=== PATIENT | female | born 1950 | race Caucasian/White ===

== ENCOUNTER → 2016-11-17 | Outpatient (CLI) | payer MEDICARE ==
[~2016-11-17] MED LIST: AMAN100C7 PO; CARB1TAB3 PO; CARB1TAB5 PO; ENTA200T PO; IBUP-1223 PO; PRAM0.5T5 PO
[2016-11-17 09:27] LABS: EPI LOT# 5695218
[2016-11-17 09:33] LABS: HEMATOCRIT 46.3 % (34.6-47.8); HEMOGLOBIN 15.8 g/dL (11.7-16.4); WHITE BLOOD COUNT 6.1 x10^3/uL (3.4-10)
[2016-11-17 09:45] LABS: BLOOD UREA NITROGEN 20 mg/dL (7-18)
[2016-11-17 09:48] LABS: ASPARTATE AMINO TRANSFERASE 18 U/L (15-37)
[2016-11-17 10:26] LABS: EPI CARTRIDGE 102 SECONDS (72-193); HCT (PFA) 46.3 % (34.6-47.8); PLATELET (PFA) 249 x10^3/uL (130-400)
== END | disposition home or self-care (01) ==
LOC: STAR 07:39
PROVIDERS: ATTEND Neurological Surgery
DX: Z01.811 Encounter for preprocedural respiratory examination (principal); M25.78 Osteophyte, vertebrae; G20 Parkinson's disease; R79.1 Abnormal coagulation profile; R82.99 Other abnormal findings in urine; Z98.82 Breast implant status
CPT/HCPCS: 36415; 71020; 80053; 81001; 85014; 85025; 85049; 85576; 85610; 85730; 87086; 93005

== ENCOUNTER 2016-11-21 10:53 | Day surgery (SDC) | payer MEDICARE ==
[~2016-11-21] VITALS: Ht 160 cm; Wt 90.4 kg
[2016-11-21 11:38] VITALS: BP 111/67
[2016-11-21] MEDS ORDERED: LACTATED RINGERS 1,000 ML IV SCH (11:42)
[2016-11-21] MEDS ORDERED: PROPOFOL 10 MG/ML, 20ML ONE (12:16)
[2016-11-21] MEDS ORDERED: GADOBUTROL 10 MMOL/10 ML PFS ONE (12:45)
[2016-11-21] MEDS ORDERED: FENTANYL PF 100 MCG/2ML IV PRN (13:00)
[2016-11-21] MEDS ORDERED: ONDANSETRON 2MG/ML, 2ML IVPush PRN (13:00)
== END 2016-11-21 14:50 ==
LOC: OUT 10:53 → EDSTATUS 12:45 → OUT 14:50
PROVIDERS: ATTEND Neurological Surgery
DX: G20 Parkinson's disease (principal); K21.9 Gastro-esophageal reflux disease without esophagitis
CPT/HCPCS: 70553; A9585; J2704; J7120

== ENCOUNTER 2016-11-27 05:37 | Inpatient (IN) | payer MEDICARE ==
[~2016-11-27] VITALS: Ht 160 cm; Wt 89.7 kg
[2016-11-27] MEDS ORDERED: CEFUROXIME 1.5 GM ONE (06:15)
[2016-11-27] MEDS ORDERED: MINERAL OIL 10 ML VIAL MC ONE (06:15)
[2016-11-27] MEDS ORDERED: NITROPRUSSIDE 25 MG/ML, 2ML ONE (06:15)
[2016-11-27] MEDS ORDERED: BUPIVACAINE/PF 0.5% ONE (06:15)
[2016-11-27] MEDS ORDERED: SODIUM BICARBONATE 1 MEQ/ML, 50ML VIAL ONE (06:16)
[2016-11-27] MEDS ORDERED: THROMBIN 5,000 UNIT VIAL TP ONE (06:16)
[2016-11-27] MEDS ORDERED: BACITRACIN 50,000 UNIT ONE (06:16)
[2016-11-27] MEDS ORDERED: LIDOCAINE/MPF 2%-EPI 1:200K, 20 ML ONE (06:16)
[2016-11-27] MEDS ORDERED: BACITRACIN OINT 500U/GM, 15 GM ONE (06:16)
[2016-11-27] MEDS ORDERED: LACTATED RINGERS 1,000 ML IV SCH (06:38)
[2016-11-27 06:43] VITALS: BP 133/72
[2016-11-27] MEDS ORDERED: PROPOFOL 10 MG/ML, 20ML ONE (07:20)
[2016-11-27] MEDS ORDERED: OXYcodone 5 MG/5 ML ORAL.SOL UDC PO PRN (10:00)
[2016-11-27] MEDS ORDERED: FENTANYL PF 100 MCG/2ML IV PRN (10:00)
[2016-11-27] MEDS ORDERED: ACETAMINOPHEN 325 MG TABLET PO PRN ×2 (10:00→14:30)
[2016-11-27] MEDS ORDERED: HYDROmorphone 1 MG/ML, 1ML IV PRN (10:00)
[2016-11-27] MEDS ORDERED: LABETALOL 5MG/ML, 20ML IV PRN (10:00)
[2016-11-27] MEDS ORDERED: ONDANSETRON 2MG/ML, 2ML IVPush PRN (10:00)
[2016-11-27] MEDS ORDERED: hydrALAzine 20 MG/ML, 1ML IV PRN (10:00)
[2016-11-27] MEDS ORDERED: HYDROcodone/APAP 5/325 TABLET PO PRN (14:30)
[2016-11-27] MEDS ORDERED: morphine SULFATE 10 MG/ML, 1ML IV PRN ×2 (14:30)
[2016-11-27] MEDS: DEXAMETHASONE 4 MG TABLET PO SCH ×2 (14:30→20:30)
[2016-11-27] MEDS ORDERED: LABETALOL 250 MG in DEXTROSE 5% 200 ML IV PRN (14:30)
[2016-11-27] MEDS ORDERED: ONDANSETRON 2MG/ML, 2ML IV PRN (14:30)
[2016-11-27] MEDS ORDERED: ACETAMINOPHEN 650 MG SUPP PR PRN (14:30)
[2016-11-27] MEDS: OXYcodone/APAP 5/325MG TABLET PO PRN ×2 (14:44→20:50)
[2016-11-27] MEDS: D5%-0.9% NACL+KCL 20MEQ 1,000 ML IV SCH (14:50)
[2016-11-27] MEDS: DEXAMETHASONE 4 MG/ML, 1ML IV SCH ×2 (15:15→20:50)
[2016-11-27] MEDS: CEFUROXIME 1.5 GM in SODIUM CHLORIDE 0.9% 50 ML IVPB SCH (17:15)
[2016-11-27] MEDS ORDERED: CARBIDOPA/LEVODOPA CR 50 MG/200 MG TABLET PO SCH (21:00)
[2016-11-27] MEDS ORDERED: PRAMIPEXOLE 0.5MG TABLET PO SCH (21:00)
[2016-11-27] MEDS ORDERED: ENTACAPONE 200 MG TABLET PO SCH (21:00)
[2016-11-27] MEDS ORDERED: CARBIDOPA/LEVODOPA 25 MG/250 MG TABLET PO SCH (21:00)
[2016-11-27] MEDS ORDERED: AMANTADINE 100 MG CAPSULE PO SCH (21:00)
[2016-11-28] MEDS: CEFUROXIME 1.5 GM in SODIUM CHLORIDE 0.9% 50 ML IVPB SCH (00:54)
[2016-11-28] MEDS: DEXAMETHASONE 4 MG TABLET PO SCH (02:30)
[2016-11-28] MEDS: DEXAMETHASONE 4 MG/ML, 1ML IV SCH ×2 (02:54→08:59)
[2016-11-28] MEDS: D5%-0.9% NACL+KCL 20MEQ 1,000 ML IV SCH (02:55)
[2016-11-28 03:21] LABS: BLOOD UREA NITROGEN 19 mg/dL (7-18)
[2016-11-28] MEDS ORDERED: CARBIDOPA/LEVODOPA 25 MG/250 MG TABLET PO SCH ×3 (06:00→12:00)
[2016-11-28] MEDS ORDERED: CARBIDOPA/LEVODOPA CR 50 MG/200 MG TABLET PO SCH (06:00)
[2016-11-28] MEDS ORDERED: OXYC-302 PO ×2 (08:10→12:11)
[2016-11-28] MEDS ORDERED: CEPH-368 PO (08:10)
[2016-11-28] MEDS ORDERED: ENTACAPONE 200 MG TABLET PO SCH ×2 (09:00→12:00)
== END 2016-11-28 12:40 | disposition home or self-care (01) | DRG 27 ==
LOC: ORIP 05:37 → EDSTATUS 07:30 → CCU 13:37 → DCLOUNGE 11-28 12:01
PROVIDERS: ADMIT Neurological Surgery; ATTEND Neurological Surgery
PROC: 4B00XVZ Measurement of Central Nervous Stimulator, External Approach (ICD-10-PCS; 2016-11-27)
PROC: 00H03MZ Insertion of Neurostimulator Lead into Brain, Percutaneous Approach (ICD-10-PCS; principal; 2016-11-27 07:30)
DX: G20 Parkinson's disease (principal); G25.0 Essential tremor
CPT/HCPCS: 36415; 70450; 80048; 87081; J0697; J1100; J2704; J3490; C1767; J3480; J7120

== ENCOUNTER 2016-12-11 05:05 | Day surgery (SDC) | payer MEDICARE ==
[~2016-12-11] VITALS: Ht 160 cm; Wt 93.2 kg
[~2016-12-11 05:05] MED LIST changes: +CEPH-368 PO; +OXYC-302 PO
[2016-12-11] MEDS ORDERED: BUPIVACAINE/PF 0.5% ONE (06:34)
[2016-12-11] MEDS ORDERED: EPINEPHRINE 1 MG/ML, 1ML ONE (06:35)
[2016-12-11] MEDS ORDERED: BACITRACIN 50,000 UNIT ONE (06:35)
[2016-12-11] MEDS ORDERED: THROMBIN 5,000 UNIT VIAL TP ONE (06:35)
[2016-12-11] MEDS ORDERED: BACITRACIN OINT 500U/GM, 15 GM ONE (06:35)
[2016-12-11] MEDS ORDERED: LACTATED RINGERS 1,000 ML IV SCH (06:40)
[2016-12-11 06:43] VITALS: BP 113/77
[2016-12-11] MEDS ORDERED: MIDAZOLAM 1 MG/ML, 2ML ONE (06:51)
[2016-12-11] MEDS ORDERED: FENTANYL PF 100 MCG/2ML ONE ×2 (06:51)
[2016-12-11] MEDS ORDERED: ROCURONIUM 10 MG/ML ONE (06:53)
[2016-12-11] MEDS ORDERED: SUCCINYLCHOLINE 20 MG/ML, 10ML ONE (06:53)
[2016-12-11] MEDS ORDERED: PROPOFOL 10 MG/ML, 20ML ONE (06:53)
[2016-12-11] MEDS ORDERED: ONDANSETRON 2MG/ML, 2ML IVPush PRN (07:30)
[2016-12-11] MEDS ORDERED: FENTANYL PF 100 MCG/2ML IV PRN (07:30)
[2016-12-11] MEDS ORDERED: HYDROmorphone 1 MG/ML, 1ML IV PRN (07:30)
[2016-12-11] MEDS ORDERED: HYDROcodone/APAP 7.5-325MG/15ML UDC PO PRN (07:30)
[2016-12-11] MEDS ORDERED: OXYcodone 5 MG/5 ML ORAL.SOL UDC PO PRN (07:30)
[2016-12-11] MEDS ORDERED: HYDROmorphone 1 MG/ML, 1ML ONE (08:24)
[2016-12-11] MEDS ORDERED: HYDROcodone/APAP 7.5-325MG/15ML UDC ONE (08:58)
[2016-12-11] MEDS ORDERED: ONDANSETRON 2MG/ML, 2ML ONE (16:07)
[2016-12-11] MEDS ORDERED: DEXAMETHASONE 4 MG/ML, 1ML ONE (16:07)
== END 2016-12-11 10:25 ==
LOC: UNDOADMIN 05:05 → SDC 05:05 → ORIP 05:05 → UNDOADMIN 05:50 → ORIP 05:50 → EDSTATUS 07:30 → SDC 10:25 → ORIP 15:40 → CCU 15:40
PROVIDERS: ATTEND Neurological Surgery
DX: G20 Parkinson's disease (principal); Z45.49 Encounter for adjustment and management of other implanted nervous system device; Z98.890 Other specified postprocedural states; Z91.09 Other allergy status, other than to drugs and biological substances
CPT/HCPCS: 61886; 70250; 76000; C1767; C1883; J0171; J0330; J1100; J1170; J2250; J2405; J2704; J3010; J3490; J7120; L8681

== ENCOUNTER 2020-08-15 15:24 | Outpatient (CLI) | payer MEDICARE ==
[~2020-08-15 15:24] MED LIST changes: -OXYC-302 PO; +OXYC1TAB14 PO
[2020-08-15 16:47] LABS: BASOPHILS % (AUTO) 1 % (0-1); EOSINOPHILS % (AUTO) 2 % (1-7); LYMPHOCYTES % (AUTO) 28 % (22-44); MEAN CORPUSCULAR HEMOGLOBIN 32.1 pg (27.0-34.8); MEAN PLATELET VOLUME 7.7 fL (7.4-10.4); MONOCYTES % (AUTO) 11 % (2-9); NEUTROPHILS % (AUTO) 59 % (42-75); PLATELET COUNT 216 x10^3/uL (130-400)
[2020-08-15] MEDS ORDERED: AMAN100C7 PO (16:51)
[2020-08-15] MEDS ORDERED: PRIM50TA34 PO ×2 (16:55)
[2020-08-15] MEDS ORDERED: cogentin PO (16:55)
[2020-08-15 16:56] LABS: ANION GAP 7 mmol/L (5-15); CALCIUM 9.8 mg/dL (8.5-10.1); CHLORIDE 106 mmol/L (98-107); CREATININE 0.85 mg/dL (0.55-1.02); INTERNATIONAL NORMALIZED RATIO 0.99 (0.93-1.1); PROTHROMBIN TIME 10.6 Seconds (9.6-11.5)
== END 2020-08-15 23:59 | disposition home or self-care (01) ==
LOC: STAR 15:24
PROVIDERS: ATTEND Neurological Surgery
DX: Z01.818 Encounter for other preprocedural examination (principal); G20 Parkinson's disease; Z20.822 Contact with and (suspected) exposure to COVID-19
CPT/HCPCS: 36415; 80048; 85025; 85610; 85730; 93005; U0003; U0005

== ENCOUNTER 2020-08-21 08:17 | Day surgery (SDC) | payer MEDICARE ==
[~2020-08-21] VITALS: Ht 157.5 cm; Wt 90.0 kg
[~2020-08-21 08:17] MED LIST changes: +PRIM50TA34 PO; +cogentin PO
[2020-08-21 09:19] VITALS: BP 136/79
[2020-08-21 09:24] VITALS: BP 136/79
[2020-08-21] MEDS ORDERED: CHLORHEXIDINE 15 ML UDC PO ONE (09:30)
[2020-08-21] MEDS ORDERED: LACTATED RINGERS 1,000 ML IV SCH (09:30)
[2020-08-21] MEDS ORDERED: FENTANYL PF 250 MCG/5ML ONE ×2 (11:20)
[2020-08-21] MEDS ORDERED: LORazepam 2 MG/ML, 1ML IVPush PRN (11:30)
[2020-08-21] MEDS ORDERED: ACETAMINOPHEN 325 MG TABLET PO PRN (11:30)
[2020-08-21] MEDS ORDERED: PROMETHAZINE 25 MG/ML, 1ML IVPush PRN (11:30)
[2020-08-21] MEDS ORDERED: EPHEDRINE 50 MG/ML, 1ML IVPush PRN (11:30)
[2020-08-21] MEDS ORDERED: hydrALAzine 20 MG/ML, 1ML IV PRN (11:30)
[2020-08-21] MEDS ORDERED: HYDROmorphone 1 MG/ML, 1ML INJ IVPush PRN (11:30)
[2020-08-21] MEDS ORDERED: FENTANYL PF 100 MCG/2ML IV PRN (11:30)
[2020-08-21] MEDS ORDERED: OXYcodone 5 MG/5 ML ORAL.SOL UDC PO PRN (11:30)
[2020-08-21] MEDS ORDERED: MEPERIDINE/PF 25MG/0.5ML IVPush PRN (11:30)
[2020-08-21] MEDS ORDERED: LABETALOL 5MG/ML, 20ML IV PRN (11:30)
[2020-08-21] MEDS ORDERED: METHOCARBAMOL 1,000 MG in DEXTROSE 5% 100 ML IV PRN (11:30)
[2020-08-21] MEDS ORDERED: ONDANSETRON 2MG/ML, 2ML IVPush PRN (11:30)
[2020-08-21] MEDS ORDERED: BUPIVACAINE/PF 0.5% ONE (11:31)
[2020-08-21] MEDS ORDERED: EPINEPHRINE 1 MG/ML, 1ML ONE (11:31)
[2020-08-21] MEDS ORDERED: BACITRACIN 50,000 UNIT ONE (11:31)
[2020-08-21] MEDS ORDERED: BACITRACIN 50,000 UNIT IM ONE (12:26)
[2020-08-21] MEDS ORDERED: BUPIVACAINE/PF-EPI 0.5% 1:200K INFIL ONE (12:26)
[2020-08-21] MEDS ORDERED: CEFAZOLIN 1,000 MG ONE (12:59)
[2020-08-21] MEDS ORDERED: GLYCOPYRROLATE 0.2MG/1ML, 5ML ONE (12:59)
[2020-08-21] MEDS ORDERED: ROCURONIUM 10MG/ML,5ML ONE (12:59)
[2020-08-21] MEDS ORDERED: PROPOFOL 10 MG/ML, 20ML ONE (12:59)
[2020-08-21] MEDS ORDERED: ONDANSETRON 2MG/ML, 2ML ONE ×2 (12:59→13:48)
[2020-08-21] MEDS ORDERED: SUCCINYLCHOLINE 20 MG/ML, 10ML ONE (12:59)
[2020-08-21] MEDS ORDERED: NEOSTIGMINE 1 MG/ML, 10ML ONE (12:59)
[2020-08-21] MEDS ORDERED: DEXAMETHASONE 4 MG/ML, 1ML ONE (12:59)
[2020-08-21] MEDS ORDERED: ACETAMINOPHEN 650 MG/20.3 ML UDC ONE (13:38)
[2020-08-21] MEDS ORDERED: FENTANYL PF 100 MCG/2ML ONE (13:48)
[2020-08-21] MEDS ORDERED: COGENTIN 1 MG PO SCH (21:00)
[2020-08-21] MEDS ORDERED: PRIMIDONE 50 MG TABLET PO SCH (21:00)
[2020-08-21] MEDS ORDERED: AMANTADINE 100 MG CAPSULE PO SCH (21:00)
[2020-08-22] MEDS ORDERED: PRIMIDONE 50 MG TABLET PO SCH (09:00)
== END 2020-08-21 15:45 | disposition home or self-care (01) ==
LOC: OUT 08:17
PROVIDERS: ATTEND Neurological Surgery
DX: Z45.42 Encounter for adjustment and management of neurostimulator (principal); G20 Parkinson's disease; Z88.3 Allergy status to other anti-infective agents; Z91.041 Radiographic dye allergy status; Z98.890 Other specified postprocedural states; Z79.899 Other long term (current) drug therapy
CPT/HCPCS: 36415; 61886; 86850; 86900; C1767; C1883; J0171; J0330; J0690; J1100; J2405; J2704; J2710; J3010; J7120